=== PATIENT | female | born 1980 | race Hispanic/Latino ===

== ENCOUNTER 2021-06-27 21:35 | Inpatient (IN) | payer SELFPAY ==
[~2021-06-27 21:35] MED LIST: Iopamidol-370 76% 500 ML 1 ML ONE
[2021-06-27 22:25] LABS: #Basophils 0.1 thou/uL (0.0-0.2); #Eosinphils 0.1 thou/uL (0.0-0.7); #Lymphocytes 3.5 thou/uL (1.20-3.40); #Monocytes 0.5 thou/uL (0.11-0.59); #Neutrophils 4.2 thou/uL (1.40-6.50); %Basophils 0.8 % (0.0-1.0); %Eosinophils 1.1 % (0.0-10.0); %Lymphocytes 42.2 % (21.0-51.0); %Monocytes 6.2 % (0.0-10.0); %Neutrophils 49.7 % (42.0-75.0); Hemoglobin 12.5 g/dL (12.0-16.0); Mean Corpuscular HGB CONC 34.3 g/dL (32.0-36.0); Mean Corpuscular Hemoglobin 32.4 pg (27.0-31.0); Mean Corpuscular Volume 94.3 fL (78.0-98.0); Mean Platelet Volume 6.5 fL (7.4-10.4); Platelet Count 349 thou/uL (130-400); RBC Distribution Width 10.8 % (11.5-14.5); Red Blood Cell (RBC) Count 3.86 mill/uL (4.20-5.40); White Blood Cell (WBC) Count 8.4 thou/uL (4.8-10.8)
[2021-06-27] MEDS ORDERED: Ketorolac Tromethamine 30 MG/ML VIAL ONE (22:27)
[2021-06-27 22:50] LABS: ALT (SGPT) 63 U/L (8-55); AST (SGOT) 40 U/L (5-34); Albumin 3.5 g/dL (3.5-5.0); Alkaline Phosphatase 185 U/L (40-110); Anion Gap 13 mmol/L (10-20); BUN (Urea Nitrogen) 14 mg/dL (7.0-18.7); Bilirubin, Total 0.4 mg/dL (0.2-1.2); Calc. Creatinine Clearance 0 mL/min (70-130); Calcium 9.3 mg/dL (7.8-10.44); Carbon Dioxide 23 mmol/L (22-29); Chloride 100 mmol/L (98-107); Globulin 4.1 g/dL (2.4-3.5); Glucose 285 mg/dL (70-105); Potassium 3.6 mmol/L (3.5-5.1); Protein, Total 7.6 g/dL (6.0-8.3); Sodium 132 mmol/L (136-145)
[2021-06-28] MEDS ORDERED: Morphine 4 MG/ML VIAL SLOW IVP PRN (00:58)
[2021-06-28] MEDS ORDERED: Sodium Chloride 0.9% 1,000 ML IV SCH (01:00)
[2021-06-28] MEDS ORDERED: Ondansetron ODT 4 MG TAB PO PRN (02:27)
[2021-06-28] MEDS ORDERED: Acetaminophen 650 MG Suppository PR PRN (02:27)
[2021-06-28] MEDS ORDERED: Ondansetron PF 4 MG/2 ML Vial IVP PRN (02:27)
[2021-06-28] MEDS ORDERED: Piperacillin/Tazobactam 3.375 GM in Sodium Chloride 0.9% 100 ML IVPB SCH (02:30)
[2021-06-28 02:41] VITALS: BMI 41.3
[2021-06-28] MEDS ORDERED: Dextrose 5% in Water 1,000 ML IV PRN (02:48)
[2021-06-28] MEDS ORDERED: Dextrose 50% Abboject 50 ML SYRINGE SLOW IVP PRN (02:48)
[2021-06-28] MEDS: Sodium Chloride 0.9% 1,000 ML IV SCH ×2 (02:50→14:37)
[2021-06-28] MEDS: Ketorolac Tromethamine 30 MG/ML VIAL IVP PRN ×2 (04:36→10:55)
[2021-06-28] MEDS: Piperacillin/Tazobactam 3.375 GM in Sodium Chloride 0.9% 100 ML IVPB SCH ×3 (06:07→21:54)
[2021-06-28 07:08] LABS: SARS-CoV-2 NAA Rapid Test Not Detected (NotDetected)
[2021-06-28 07:38] LABS: #Eosinphils 0.1 thou/uL (0.0-0.7); #Lymphocytes 2.8 thou/uL (1.20-3.40); #Monocytes 0.5 thou/uL (0.11-0.59); #Neutrophils 3.4 thou/uL (1.40-6.50); %Basophils 0.3 % (0.0-1.0); %Eosinophils 1.3 % (0.0-10.0); %Lymphocytes 41.3 % (21.0-51.0); %Monocytes 7.4 % (0.0-10.0); %Neutrophils 49.8 % (42.0-75.0); Hemoglobin 11.5 g/dL (12.0-16.0); Mean Corpuscular HGB CONC 34.5 g/dL (32.0-36.0); Mean Corpuscular Hemoglobin 32.9 pg (27.0-31.0); Mean Corpuscular Volume 95.6 fL (78.0-98.0); Mean Platelet Volume 6.4 fL (7.4-10.4); Platelet Count 319 thou/uL (130-400); Red Blood Cell (RBC) Count 3.49 mill/uL (4.20-5.40); White Blood Cell (WBC) Count 6.9 thou/uL (4.8-10.8)
[2021-06-28 07:42] LABS: Anion Gap 13 mmol/L (10-20); BUN (Urea Nitrogen) 11 mg/dL (7.0-18.7); Calc. Creatinine Clearance 170 mL/min (70-130); Calcium 9.1 mg/dL (7.8-10.44); Carbon Dioxide 24 mmol/L (22-29); Chloride 105 mmol/L (98-107); Glucose 156 mg/dL (70-105); Potassium 3.9 mmol/L (3.5-5.1); Sodium 138 mmol/L (136-145)
[2021-06-28] MEDS: Pantoprazole 40 MG VIAL IVP SCH (09:06)
[2021-06-28] MEDS ORDERED: Fentanyl 100 MCG/2 ML VIAL ONE ×2 (12:25→14:19)
[2021-06-28] MEDS ORDERED: Neomycin-Polymyxin 1 ML AMP ONE (12:32)
[2021-06-28] MEDS ORDERED: Lidocaine 1% w/Epinephrine 1:100K 20 ML VIAL ONE (12:32)
[2021-06-28] MEDS ORDERED: Bupivacaine 0.25% HCL 30 ML VIAL ONE (12:32)
[2021-06-28] MEDS ORDERED: Lidocaine 1% PF 5 ML VIAL ONE (12:47)
[2021-06-28] MEDS ORDERED: Dexamethasone 20 MG/5 ML VIAL ONE (12:47)
[2021-06-28] MEDS ORDERED: Ondansetron PF 4 MG/2 ML Vial ONE (12:47)
[2021-06-28] MEDS ORDERED: Rocuronium Bromide 10 MG/ML (10ML VIAL) ONE (12:47)
[2021-06-28] MEDS ORDERED: PHENYLEPHRINE-NS 100 MCG/ML 10 ML SYRINGE ONE (12:47)
[2021-06-28] MEDS ORDERED: ePHEDrine 50 MG/ML VIAL ONE (12:47)
[2021-06-28] MEDS ORDERED: Glycopyrrolate 0.2 MG/ML 5 ML SYRINGE ONE (12:47)
[2021-06-28] MEDS ORDERED: PROPOFOL 200 MG/20 ML VIAL ONE (12:47)
[2021-06-28] MEDS: metFORMIN 500 MG TAB PO SCH (17:24)
[2021-06-28] MEDS: Acetaminophen 325 MG TAB PO PRN (17:32)
[2021-06-28] MEDS: HumaLOG 300 UNITS/3 ML VIAL SC PRN (20:41)
[2021-06-29] MEDS: Ketorolac Tromethamine 30 MG/ML VIAL IVP PRN ×2 (04:36→12:22)
[2021-06-29] MEDS: Piperacillin/Tazobactam 3.375 GM in Sodium Chloride 0.9% 100 ML IVPB SCH ×3 (05:51→20:00)
[2021-06-29] MEDS: Levothyroxine Sodium 100 MCG TAB PO SCH (05:52)
[2021-06-29] MEDS: HumaLOG 300 UNITS/3 ML VIAL SC PRN ×4 (05:57→20:08)
[2021-06-29] MEDS: Pantoprazole 40 MG VIAL IVP SCH (08:16)
[2021-06-29] MEDS: metFORMIN 500 MG TAB PO SCH ×2 (08:32→16:57)
[2021-06-29] MEDS: Acetaminophen 325 MG TAB PO PRN (08:32)
[2021-06-29] MEDS: traMADol HCl 50 MG TAB PO PRN (19:59)
[2021-06-30] MEDS: Levothyroxine Sodium 100 MCG TAB PO SCH (06:02)
[2021-06-30] MEDS: Piperacillin/Tazobactam 3.375 GM in Sodium Chloride 0.9% 100 ML IVPB SCH ×3 (06:03→21:39)
[2021-06-30] MEDS: traMADol HCl 50 MG TAB PO PRN ×3 (06:07→21:37)
[2021-06-30] MEDS: metFORMIN 500 MG TAB PO SCH ×2 (08:36→16:44)
[2021-06-30] MEDS: Pantoprazole 40 MG VIAL IVP SCH (09:56)
[2021-06-30 10:20] LABS: Hemoglobin A1c 7.7 % (4.0-6.0)
[2021-06-30] MEDS ORDERED: Morphine 4 MG/ML VIAL SLOW IVP PRN (12:53)
[2021-07-01] MEDS: Levothyroxine Sodium 100 MCG TAB PO SCH (05:41)
[2021-07-01] MEDS: traMADol HCl 50 MG TAB PO PRN ×2 (05:41→13:25)
[2021-07-01] MEDS: Piperacillin/Tazobactam 3.375 GM in Sodium Chloride 0.9% 100 ML IVPB SCH ×3 (05:43→21:19)
[2021-07-01] MEDS: metFORMIN 500 MG TAB PO SCH ×2 (08:02→17:17)
[2021-07-01] MEDS ORDERED: FLU VACC QS2021-22(6MOS UP)/PF 60 MCG/0.5 ML SYRINGE IM ONE (09:00)
[2021-07-01] MEDS ORDERED: Benzonatate 100 MG CAP PO PRN (09:03)
[2021-07-01] MEDS: Pantoprazole 40 MG VIAL IVP SCH (09:48)
[2021-07-01] MEDS: Ketorolac Tromethamine 30 MG/ML VIAL IVP PRN ×3 (09:49→22:48)
[2021-07-02] MEDS: Ketorolac Tromethamine 30 MG/ML VIAL IVP PRN ×2 (05:26→11:37)
[2021-07-02] MEDS: Levothyroxine Sodium 100 MCG TAB PO SCH (05:27)
[2021-07-02] MEDS: Piperacillin/Tazobactam 3.375 GM in Sodium Chloride 0.9% 100 ML IVPB SCH (05:27)
[2021-07-02] MEDS: metFORMIN 500 MG TAB PO SCH (08:13)
[2021-07-02] MEDS: Pantoprazole 40 MG VIAL IVP SCH (09:34)
[2021-07-02] MEDS ORDERED: Polyethylene Glycol 3350 17 GM Packet PO PRN (10:30)
[2021-07-02 13:50] VITALS: BP 105/72; TEMP 97.8
== END 2021-07-02 16:14 | disposition home or self-care (01) | DRG 144 ==
LOC: ERS 21:35 → T4-A 06-28 00:14 → OBSVTOIN 06-30 09:39
PROVIDERS: ADMIT Student in an Organized Health Care Education/Training Program; ATTEND Internal Medicine
PROC: 0K930ZZ Drainage of Left Neck Muscle, Open Approach (ICD-10-PCS; principal; 2021-06-30)
DX: Q18.0 Sinus, fistula and cyst of branchial cleft (principal); L02.11 Cutaneous abscess of neck; E87.1 Hypo-osmolality and hyponatremia; Z20.822 Contact with and (suspected) exposure to COVID-19; E11.9 Type 2 diabetes mellitus without complications; E03.9 Hypothyroidism, unspecified; Z79.899 Other long term (current) drug therapy; Z79.890 Hormone replacement therapy; Z79.84 Long term (current) use of oral hypoglycemic drugs
CPT/HCPCS: 36415; 36416; 70491; 80048; 80053; 83036; 85025; 87070; 87205; 96374; 96375; 96376; C9113; G0378; J1100; J1815; J1885; J2270; J2405; J2543; J2704; J2710; J3010; J3490; J7050; Q9967; S0020; U0002

== ENCOUNTER 2022-11-09 21:30 | Inpatient (IN) | payer SELFPAY ==
[2022-11-09 22:32] LABS: Bacteria/HPF 3+ HPF (None Seen); Bilirubin Negative (Negative); Blood, Urine Negative (Negative); Clarity Turbid (Clear); Glucose, Urine (Dipstick) Normal (Negative); Ketone, Urine Negative (Negative); Leukocyte 250 Leu/uL (Negative); Nitrite Negative (Negative); Protein, Urine (Dipstick) 10 mg/dL (Neg-Trace); RBC/HPF None Seen HPF (0-3); Specific Gravity, Urine 1.026 (1.002-1.036); Urobilinogen Normal mg/dL (Less than 2); WBC/HPF 21-50 HPF (0-3); pH, Urine 5.5 (5.0-9.0)
[2022-11-09 22:41] LABS: #Eosinphils 0.1 thou/uL (0.0-0.7); #Lymphocytes 1.9 thou/uL (1.20-3.40); #Monocytes 0.4 thou/uL (0.11-0.59); #Neutrophils 11.2 thou/uL (1.40-6.50); %Basophils 0.3 % (0.0-1.0); %Eosinophils 0.4 % (0.0-10.0); %Lymphocytes 14.1 % (21.0-51.0); %Monocytes 3.2 % (0.0-10.0); Hemoglobin 14.3 g/dL (12.0-16.0); Mean Corpuscular HGB CONC 31.7 g/dL (32.0-36.0); Mean Corpuscular Hemoglobin 31.3 pg (27.0-31.0); Mean Corpuscular Volume 98.9 fl (78.0-98.0); Mean Platelet Volume 7.2 fL (7.4-10.4); Platelet Count 366 10x3/uL (130-400); RBC Distribution Width 11.5 % (11.5-14.5); Red Blood Cell (RBC) Count 4.55 mill/uL (4.20-5.40); White Blood Cell (WBC) Count 13.6 10x3/uL (4.8-10.8)
[2022-11-09 22:47] LABS: INR-International Normal Ratio 0.9; Prothrombin Time 12.6 sec (12.0-14.7)
[2022-11-09 22:51] LABS: PTT 22.4 sec (22.9-36.1)
[2022-11-09 23:02] LABS: ALT (SGPT) 47 U/L (8-55); AST (SGOT) 30 U/L (5-34); Alkaline Phosphatase 107 U/L (40-110); Anion Gap 16 mmol/L (10-20); BUN (Urea Nitrogen) 25 mg/dL (7.0-18.7); Bilirubin, Total 0.5 mg/dL (0.2-1.2); Calc. Creatinine Clearance 0 mL/min (70-130); Calcium 9.1 mg/dL (7.8-10.44); Carbon Dioxide 22 mmol/L (22-29); Chloride 102 mmol/L (98-107); Estimated GFR 110; Globulin 3.4 g/dL (2.4-3.5); Glucose 219 mg/dL (70-105); Glucose POC Confirmation 219 mg/dL (70-105); Lipase 118 U/L (8-78); Potassium 3.6 mmol/L (3.5-5.1); Protein, Total 7.4 g/dL (6.0-8.3); Sodium 136 mmol/L (136-145)
[2022-11-09] MEDS ORDERED: Ondansetron ODT 4 MG TAB ONE (23:28)
[2022-11-09] MEDS ORDERED: Ketorolac Tromethamine 30 MG/ML VIAL ONE (23:39)
[2022-11-10] MEDS ORDERED: Ketorolac Tromethamine 30 MG/ML VIAL ONE (02:04)
[2022-11-10] MEDS ORDERED: Promethazine HCl 25 MG/ML VIAL IM PRN ×3 (02:43→19:48)
[2022-11-10] MEDS ORDERED: cefTRIAXone\\ROCEPHIN 1 GM in Sodium Chloride 0.9% 100 ML IVPB SCH (03:00)
[2022-11-10] MEDS ORDERED: Lactated Ringer's 1,000 ML IV SCH (03:00)
[2022-11-10 03:19] LABS: Cardiac Risk 3.1 (Less than 4.5)
[2022-11-10 04:14] VITALS: BMI 41.8
[2022-11-10 06:10] LABS: #Eosinphils 0.1 thou/uL (0.0-0.7); #Lymphocytes 1.9 thou/uL (1.20-3.40); #Monocytes 0.4 thou/uL (0.11-0.59); #Neutrophils 6.6 thou/uL (1.40-6.50); %Basophils 0.1 % (0.0-1.0); %Eosinophils 0.7 % (0.0-10.0); %Lymphocytes 21.5 % (21.0-51.0); %Neutrophils 73.6 % (42.0-75.0); Hemoglobin 12.2 g/dL (12.0-16.0); Mean Corpuscular HGB CONC 33.8 g/dL (32.0-36.0); Mean Corpuscular Hemoglobin 32.8 pg (27.0-31.0); Mean Corpuscular Volume 97.1 fl (78.0-98.0); Mean Platelet Volume 7.1 fL (7.4-10.4); Platelet Count 266 10x3/uL (130-400); RBC Distribution Width 11.6 % (11.5-14.5); Red Blood Cell (RBC) Count 3.72 mill/uL (4.20-5.40)
[2022-11-10] MEDS: Levothyroxine Sodium 100 MCG TAB PO SCH (06:16)
[2022-11-10 06:40] LABS: ALT (SGPT) 49 U/L (8-55); AST (SGOT) 49 U/L (5-34); Albumin 3.1 g/dL (3.5-5.0); Alkaline Phosphatase 78 U/L (40-110); Anion Gap 11 mmol/L (10-20); BUN (Urea Nitrogen) 24 mg/dL (7.0-18.7); Bilirubin, Total 0.5 mg/dL (0.2-1.2); Calc. Creatinine Clearance 178 mL/min (70-130); Calcium 7.9 mg/dL (7.8-10.44); Carbon Dioxide 24 mmol/L (22-29); Chloride 103 mmol/L (98-107); Estimated GFR 111; Globulin 2.7 g/dL (2.4-3.5); Glucose 171 mg/dL (70-105); Potassium 3.4 mmol/L (3.5-5.1); Protein, Total 5.8 g/dL (6.0-8.3); Sodium 135 mmol/L (136-145)
[2022-11-10] MEDS: metFORMIN 500 MG TAB PO SCH ×2 (08:34→17:09)
[2022-11-10] MEDS: Acetaminophen 325 MG TAB PO PRN ×2 (08:34→23:47)
[2022-11-10] MEDS: Famotidine/PF 20 mg/2ml Vial SLOW IVP SCH ×3 (08:34→21:18)
[2022-11-10] MEDS: Famotidine 20 MG TAB PO SCH ×3 (08:35→21:18)
[2022-11-10] MEDS ORDERED: Dextrose 5% in Water 1,000 ML IV PRN ×2 (09:29→19:48)
[2022-11-10] MEDS ORDERED: Dextrose 50% Abboject 50 ML SYRINGE SLOW IVP PRN ×2 (09:29→19:48)
[2022-11-10] MEDS ORDERED: Piperacillin/Tazobactam 3.375 GM in Sodium Chloride 0.9% 100 ML IVPB SCH (10:00)
[2022-11-10] MEDS: Piperacillin/Tazobactam 3.375 GM in Sodium Chloride 0.9% 100 ML IVPB SCH ×2 (13:12→21:10)
[2022-11-10 15:21] LABS: BHCG - Serum Negative (NEGATIVE); Pregs Control Background? CLEAR/WHITE (CLR/WHITE); Pregs Control Bar Appear? YES (CONTROL BAR)
[2022-11-10] MEDS ORDERED: Bupivacaine/Epinephrine 0.25% 30 ML VIAL ONE (16:21)
[2022-11-10] MEDS ORDERED: Iopamidol 15 ML ONE (16:21)
[2022-11-10] MEDS ORDERED: Famotidine/PF 20 mg/2ml Vial ONE (16:24)
[2022-11-10] MEDS ORDERED: fentaNYL PF 100 MCG/2 ML SYRINGE ONE (16:24)
[2022-11-10] MEDS ORDERED: PROPOFOL 200 MG/20 ML VIAL ONE (16:58)
[2022-11-10] MEDS ORDERED: Succinylcholine 200 MG/10 ml SYRINGE FS ONE (16:58)
[2022-11-10] MEDS ORDERED: NEOSTIGMINE 3 MG/3 ML SYR 3 MG/3 ML SYRINGE ONE (16:58)
[2022-11-10] MEDS ORDERED: Lidocaine 1% PF 5 ML VIAL ONE (16:58)
[2022-11-10] MEDS ORDERED: Ondansetron PF 4 MG/2 ML Vial ONE (16:58)
[2022-11-10] MEDS ORDERED: Labetalol HCl 100 MG/20 ML VIAL ONE (16:58)
[2022-11-10] MEDS ORDERED: Rocuronium Bromide 10 MG/ML (10ML VIAL) ONE (16:58)
[2022-11-10] MEDS ORDERED: GLYCOPYRROLATE/PF 0.2 MG/ML VIAL ONE (16:58)
[2022-11-10] MEDS ORDERED: Dexamethasone 20 MG/5 ML VIAL ONE (16:58)
[2022-11-10] MEDS ORDERED: Indomethacin 50 MG SUPP PR SCH (17:30)
[2022-11-10] MEDS ORDERED: methylPREDNISolone Sod Succ 40 MG VIAL IVP SCH (18:00)
[2022-11-10] MEDS ORDERED: Ondansetron HCl/PF 4 MG/2 ML Vial IVP PRN (19:06)
[2022-11-10] MEDS ORDERED: FENTANYL 50 MCG/ML 1 ML VIAL ONE (19:39)
[2022-11-10] MEDS ORDERED: traMADol HCl 50 MG TAB PO PRN (19:41)
[2022-11-10] MEDS ORDERED: Ondansetron PF 4 MG/2 ML Vial IVP PRN (19:48)
[2022-11-10] MEDS ORDERED: Morphine 2 MG/ML VIAL SLOW IVP PRN (19:48)
[2022-11-10] MEDS ORDERED: Acetaminophen 325 MG TAB PO PRN (19:48)
[2022-11-10] MEDS: Senokot S 8.6-50 MG TAB PO SCH (21:18)
[2022-11-10] MEDS: HumaLOG 300 UNITS/3 ML VIAL SC PRN (21:22)
[2022-11-10] MEDS: traMADol HCl 50 MG TAB PO SCH (23:46)
[2022-11-11] MEDS: Piperacillin/Tazobactam 3.375 GM in Sodium Chloride 0.9% 100 ML IVPB SCH ×2 (05:12→14:48)
[2022-11-11] MEDS: Levothyroxine Sodium 100 MCG TAB PO SCH (05:14)
[2022-11-11] MEDS: traMADol HCl 50 MG TAB PO SCH ×2 (05:15→12:31)
[2022-11-11] MEDS: Acetaminophen 325 MG TAB PO PRN (05:16)
[2022-11-11] MEDS: HumaLOG 300 UNITS/3 ML VIAL SC PRN ×2 (05:19→12:32)
[2022-11-11 07:11] LABS: #Lymphocytes 1.3 thou/uL (1.20-3.40); #Monocytes 0.4 thou/uL (0.11-0.59); #Neutrophils 5.2 thou/uL (1.40-6.50); %Basophils 0.1 % (0.0-1.0); %Lymphocytes 19.3 % (21.0-51.0); %Neutrophils 74.6 % (42.0-75.0); Mean Corpuscular HGB CONC 31.8 g/dL (32.0-36.0); Mean Corpuscular Hemoglobin 31.4 pg (27.0-31.0); Mean Corpuscular Volume 98.8 fl (78.0-98.0); Platelet Count 304 10x3/uL (130-400); RBC Distribution Width 11.5 % (11.5-14.5); Red Blood Cell (RBC) Count 3.82 mill/uL (4.20-5.40); White Blood Cell (WBC) Count 6.9 10x3/uL (4.8-10.8)
[2022-11-11 07:35] LABS: ALT (SGPT) 72 U/L (8-55); AST (SGOT) 46 U/L (5-34); Albumin 3.3 g/dL (3.5-5.0); Alkaline Phosphatase 88 U/L (40-110); Anion Gap 12 mmol/L (10-20); BUN (Urea Nitrogen) 10 mg/dL (7.0-18.7); Bilirubin, Total 0.5 mg/dL (0.2-1.2); Calc. Creatinine Clearance 178 mL/min (70-130); Calcium 8.8 mg/dL (7.8-10.44); Carbon Dioxide 22 mmol/L (22-29); Chloride 104 mmol/L (98-107); Estimated GFR 111; Glucose 260 mg/dL (70-105); Lipase 12 U/L (8-78); Potassium 3.7 mmol/L (3.5-5.1); Protein, Total 6.3 g/dL (6.0-8.3); Sodium 134 mmol/L (136-145)
[2022-11-11] MEDS: metFORMIN 500 MG TAB PO SCH ×2 (08:32→17:16)
[2022-11-11] MEDS: Famotidine/PF 20 mg/2ml Vial SLOW IVP SCH (08:33)
[2022-11-11] MEDS: Famotidine 20 MG TAB PO SCH (08:33)
[2022-11-11] MEDS: Senokot S 8.6-50 MG TAB PO SCH (08:37)
[2022-11-11] MEDS: HYDROcodone/Acetaminophen 10/325 mg Tablet PO PRN ×2 (08:42→14:48)
[2022-11-11 08:44] VITALS: TEMP 98.2
[2022-11-11] MEDS ORDERED: Polyethylene Glycol 3350 17 GM Packet PO SCH (09:00)
[2022-11-11 17:09] VITALS: BP 112/75
== END 2022-11-11 17:27 | disposition home or self-care (01) | DRG 418 ==
LOC: ERS 21:30 → T4-A 11-10 02:30 → OBSVTOIN 11-10 09:29
PROVIDERS: ADMIT Student in an Organized Health Care Education/Training Program; ATTEND Hospitalist
PROC: 0FT44ZZ Resection of Gallbladder, Percutaneous Endoscopic Approach (ICD-10-PCS; principal; 2022-11-10)
PROC: BF10YZZ Fluoroscopy of Bile Ducts using Other Contrast (ICD-10-PCS; 2022-11-10)
DX: K85.10 Biliary acute pancreatitis without necrosis or infection (principal); N39.0 Urinary tract infection, site not specified; Z68.41 Body mass index [BMI] 40.0-44.9, adult; E66.9 Obesity, unspecified; E11.9 Type 2 diabetes mellitus without complications; K80.20 Calculus of gallbladder without cholecystitis without obstruction; E03.9 Hypothyroidism, unspecified; M79.7 Fibromyalgia; Z79.890 Hormone replacement therapy
CPT/HCPCS: 36415; 36416; 47532; 74176; 76705; 80053; 80061; 81003; 81015; 83605; 83690; 84484; 84703; 85025; 85610; 85730; 87040; 88304; 93005; 94760; 96361; 96374; 96375; 96376; C1889; G0378; J0696; J1100; J1815; J1885; J1956; J2272; J2405; J2543; J2704; J3010; J3490; J7120; Q0162; Q9967; S0028

== ENCOUNTER 2023-08-30 12:44 | Emergency (ER) | payer SELFPAY ==
[~2023-08-30 12:44] MED LIST changes: -Iopamidol-370 76% 500 ML 1 ML ONE; +Iopamidol-370 76% 500 ML MDV (1 ML CHARGE) ONE
[2023-08-30 13:15] LABS: #Monocytes 0.6 thou/uL (0.11-0.59); #Neutrophils 10.3 thou/uL (1.40-6.50); %Basophils 0.1 % (0.0-1.0); %Lymphocytes 17.5 % (21.0-51.0); %Monocytes 4.3 % (0.0-10.0); %Neutrophils 77.5 % (42.0-75.0); Hematocrit 41.4 % (36.0-47.0); Hemoglobin 13.7 g/dL (12.0-16.0); Mean Corpuscular HGB CONC 33.1 g/dL (32.0-36.0); Mean Corpuscular Hemoglobin 30.6 pg (27.0-31.0); Mean Corpuscular Volume 92.4 fl (78.0-98.0); Mean Platelet Volume 9.4 fL (7.4-10.4); Platelet Count 418 10x3/uL (130-400); RBC Distribution Width 13.2 % (11.5-14.5); Red Blood Cell (RBC) Count 4.48 mill/uL (4.20-5.40); White Blood Cell (WBC) Count 13.4 10x3/uL (4.8-10.8)
[2023-08-30 13:37] LABS: ALT (SGPT) 64 U/L (8-55); AST (SGOT) 16 U/L (5-34); Albumin 3.8 g/dL (3.5-5.0); Alkaline Phosphatase 152 U/L (40-110); Anion Gap 18 mmol/L (10-20); BUN (Urea Nitrogen) 14 mg/dL (7.0-18.7); Bilirubin, Total 0.3 mg/dL (0.2-1.2); Calc. Creatinine Clearance 0 mL/min (70-130); Carbon Dioxide 23 mmol/L (22-29); Chloride 99 mmol/L (98-107); Estimated GFR 85; Globulin 3.4 g/dL (2.4-3.5); Glucose 302 mg/dL (70-105); Potassium 3.4 mmol/L (3.5-5.1); Protein, Total 7.2 g/dL (6.0-8.3); Sodium 137 mmol/L (136-145)
[2023-08-30 14:01] LABS: SARS-CoV-2 NAA Rapid Test Not Detected (NotDetected)
[2023-08-30] MEDS ORDERED: Ketorolac Tromethamine 30 MG (1 mL) VIAL ONE (14:36)
[2023-08-30] MEDS ORDERED: Ondansetron PF 4 MG/2 ML Vial ONE (14:37)
[2023-08-30 15:22] LABS: BHCG - Serum Negative (NEGATIVE); Pregs Control Background? CLEAR/WHITE (CLR/WHITE); Pregs Control Bar Appear? YES (CONTROL BAR)
[2023-08-30 15:49] LABS: Bacteria/HPF None Seen HPF (None Seen); Bilirubin Negative (Negative); Blood, Urine Negative (Negative); CAUTI Indications for Culture Dysuria,urgency,freq; Calcium Oxalate Crystals 2+ HPF (None Seen); Clarity Clear (Clear); Glucose, Urine (Dipstick) Greater than 1000 mg/dL (Negative); Ketone, Urine Negative (Negative); Leukocyte 75 Leu/uL (Negative); Nitrite Negative (Negative); Protein, Urine (Dipstick) Negative (Neg-Trace); RBC/HPF 0-3 HPF (0-3); Urobilinogen Normal mg/dL (Less than 2)
[2023-08-30 15:50] LABS: Urine Culture Reflex No No
== END 2023-08-30 17:17 | disposition home or self-care (01) ==
LOC: ERS 12:44
DX: J42 Unspecified chronic bronchitis (principal); E11.65 Type 2 diabetes mellitus with hyperglycemia; R19.7 Diarrhea, unspecified; I10 Essential (primary) hypertension; Z79.84 Long term (current) use of oral hypoglycemic drugs; Z79.899 Other long term (current) drug therapy
CPT/HCPCS: 36415; 71045; 74177; 80053; 81001; 84703; 85025; 87804; 93005; 96361; 96374; 96375; J1885; J2405; Q9967; U0002

== ENCOUNTER 2024-01-14 17:20 | Emergency (ER) | payer SELFPAY ==
[2024-01-14] MEDS ORDERED: Ketorolac Tromethamine 30 MG (1 mL) VIAL ONE (18:09)
[2024-01-14 18:18] LABS: #Basophils 0.03 10x3/uL (0.0-0.2); #Eosinphils Less than 0.03 10x3/uL (0.0-0.7); %Basophils 0.3 % (0.0-1.0); %Eosinophils 0.2 % (0.0-10.0); %Lymphocytes 29.9 % (21.0-51.0); %Monocytes 5.2 % (0.0-10.0); %Neutrophils 64.1 % (42.0-75.0); Hematocrit 37.6 % (36.0-47.0); Hemoglobin 12.7 g/dL (12.0-16.0); Mean Corpuscular HGB CONC 33.8 g/dL (32.0-36.0); Mean Corpuscular Volume 91.7 fL (78.0-98.0); Mean Platelet Volume 9.8 fL (7.4-10.4); Platelet Count 326 10x3/uL (130-400); RBC Distribution Width 13.5 % (11.5-14.5)
[2024-01-14 18:37] LABS: ALT (SGPT) 27 U/L (8-55); AST (SGOT) 18 U/L (5-34); Albumin 3.2 g/dL (3.5-5.0); Alkaline Phosphatase 125 U/L (40-110); Anion Gap 15 mmol/L (10-20); BUN (Urea Nitrogen) 15 mg/dL (7.0-18.7); Bilirubin, Total 0.4 mg/dL (0.2-1.2); Calc. Creatinine Clearance 0 mL/min (70-130); Calcium 9.7 mg/dL (7.8-10.44); Carbon Dioxide 24 mmol/L (22-29); Chloride 98 mmol/L (98-107); Estimated GFR 97; Globulin 3.5 g/dL (2.4-3.5); Glucose 401 mg/dL (70-105); Potassium 3.2 mmol/L (3.5-5.1); Protein, Total 6.7 g/dL (6.0-8.3); Sodium 134 mmol/L (136-145)
[2024-01-14] MEDS ORDERED: Potassium Chloride 20 MEQ TAB ONE (18:49)
[2024-01-14] MEDS ORDERED: Insulin Regular, Human 100 UNIT/ML 10 ML VIAL ONE (19:06)
== END 2024-01-14 20:30 | disposition home or self-care (01) ==
LOC: ERS 17:20
DX: K08.89 Other specified disorders of teeth and supporting structures (principal); E11.65 Type 2 diabetes mellitus with hyperglycemia; I10 Essential (primary) hypertension; Z79.84 Long term (current) use of oral hypoglycemic drugs; Z79.899 Other long term (current) drug therapy
CPT/HCPCS: 36415; 36416; 80053; 82010; 83605; 85025; 96374; 96375; J1815; J1885

== ENCOUNTER 2024-07-06 10:42 | Outpatient (CLI) | payer OTHER | END 2024-07-06 10:43 | disposition home or self-care (01) | LOC: CT 10:42 | PROVIDERS: ATTEND Family Medicine | DX: K06.1 Gingival enlargement (principal); J35.9 Chronic disease of tonsils and adenoids, unspecified | CPT/HCPCS: 93970 ==